=== PATIENT | male | born 1965 | race African-American/Black ===

== ENCOUNTER → 2018-04-21 | Outpatient (CLI) | payer OTHER ==
[~2018-04-21] MED LIST: ASPI81TA50 PO; LISI-338 PO; SIMV20TA3 PO; SITA1TAB11 PO
--- NOTE | 2018-04-21 14:28 | KCIC ---
MRI Lumbar Spine without contrast History: Low back pain since the first of the year, left radiculopathy Technique: Multiplanar, multi sequential noncontrast MR imaging was performed of the lumbar spine. Contrast: None Comparison: None Findings: Most inferior fully formed intervertebral disc space is considered L5-S1 for this report. Lumbar vertebral body stature and AP alignment are maintained. There is mild degenerative disc disease L4-5. There is narrowing of the L5-S1 intervertebral disc space likely on a developmental basis. Conus terminates at T12. There is small hemangioma of the T12 vertebral body, also larger focus of L5 vertebral body. There are some tiny foci of marrow signal change of the L4 and L2 vertebral bodies which are isointense on T1 sequence, more likely to be a small hemangiomas. L2-L3: Neural foramina and spinal canal are adequate. There is negligible disc osteophyte complex. L3-L4: There is minimal facet degenerative change. Spinal canal and neural foramina are adequate. L4-L5: There is disc osteophyte complex and minimal bulge, mild indentation upon the ventral thecal sac somewhat greater the left lateral recess. There is also superimposed extrusion extending below the intervertebral disc space eccentric to left lateral recess on the order of 1.2 cm transverse by 0.5 cm AP by about 1.1 cm CC. There is contact of the left L5 nerve root in the left lateral recess and at the proximal aspect of the left L5-S1 neural foramen. At the intervertebral disc space level, there is overall mild narrowing of the far left lateral recess. There is mild facet degenerative change. There is mild neural foramina compromise bilaterally. L5-S1: Spinal canal and the neural foramina are adequate. Impression: 1. Most inferior fully formed intervertebral disc space is considered L5-S1. There is extrusion extending below the L4-5 intervertebral disc space in the left lateral recess with contact of the left L5 nerve root, mild left lateral recess stenosis. There is mild degenerative disc disease and spondylosis at L4-5. There is mild neural foramina compromise bilaterally at L4-5. Electronically signed by: Cristian Benton MD (04/21/2018 2:24 PM) [id number]
== END | disposition home or self-care (01) ==
LOC: KCIC MRI 12:34
PROVIDERS: ATTEND Physician Assistant
DX: M51.36 Other intervertebral disc degeneration, lumbar region (principal); M47.896 Other spondylosis, lumbar region; M51.26 Other intervertebral disc displacement, lumbar region; M25.78 Osteophyte, vertebrae; M48.07 Spinal stenosis, lumbosacral region
CPT/HCPCS: 72148